=== PATIENT | male | born 1945 | race Caucasian/White ===

== ENCOUNTER → 2017-05-18 10:31 | Outpatient (CLI) | payer MEDICARE, BC, SELFPAY ==
--- NOTE | 2017-05-18 10:41 | XR_ITS ---
XR foot RT min 3V HISTORY: ITS.REASON: RT FOOT SWELLING, ORDERING PHYSICIAN: Abilio Pinto PATIENT AGE: 71 years COMPARISON: None FINDINGS: No fracture or dislocation. No lytic or blastic change. There is normal mineralization.. The joint spaces are well-preserved. No significant degenerative/arthritic changes. No erosive changes evident. There is extension of the toes and mild pes cavus. IMPRESSION: 1. No acute finding. 2. Nonspecific extension of the toes with pes cavus
== END ==
PROVIDERS: PCP Internal Medicine; Visit Provider Internal Medicine
DX: M79.89 Other specified soft tissue disorders (principal)
CPT/HCPCS: 73630

== ENCOUNTER → 2019-10-04 10:51 | Outpatient (CLI) | payer MEDICARE, OTHER, SELFPAY ==
--- NOTE | 2019-10-04 11:04 | XR_ITS ---
PROCEDURE: XR CHEST 2V CLINICAL HISTORY: COUGH, CHEST PAIN COMPARISON: No exams were available for comparison FINDINGS: The cardiomediastinal silhouette and pulmonary vascularity are within normal limits. The lungs are clear without infiltrates, suspicious nodules, or pleural effusions. No acute bony abnormalities. IMPRESSION: No acute findings. Dictated by: Kvng Fagan 10/04/2019 11:47 Electronically signed by Kvng Fagan in [place] 10/04/2019 11:47
--- NOTE | 2019-10-04 11:32 | ECG_ITS ---
APPROVED REPORT Exam: Resting ECG HR:61 bpm ECG Measurements Heart Rate 61 AXES [place] 146 P 51 QRSd 90 QRS 46 QT 424 T 63 QTc 426 <Conclusion> Normal sinus rhythm Nonspecific T wave abnormality Abnormal ECG Electronically signed by : Abilio Pinto, 10/04/2019 11:49:37
== END ==
PROVIDERS: PCP Internal Medicine; Visit Provider Internal Medicine
DX: R07.89 Other chest pain (principal); R05 Cough
CPT/HCPCS: 71046; 93005

== ENCOUNTER → 2019-10-16 09:32 | Outpatient (CLI) | payer MEDICARE, OTHER, SELFPAY ==
--- NOTE | 2019-10-16 09:31 | CT_ITS ---
PROCEDURE: CT CHEST W CON CLINCAL INDICATION: L CHEST DISCOMFORT Left anterior chest discomfort/pressure with COMPARISON: XR CHEST 2V from 10/04/2019 TECHNIQUE: IV Contrast: 75ml Optiray 350 Axial images obtained with sagittal and coronal reformats. All CT scans at the facility use one or more dose reduction, viz: automated exposure control, ma/kV adjustment per patient size (including targeted exams where dose is matched to indication, i.e. head), or iterative reconstruction technique. FINDINGS: HEART AND MEDIASTINAL STRUCTURES: The left lobe of the thyroid gland is enlarged with heterogeneous density with some stippled calcification along the upper pole suggestive of a large thyroid nodule. This area measures approximately 3.9 by 2.8 cm. This is causing compression upon the trachea with mild tracheal shift toward the right of approximately 1.3 cm and is causing some narrowing of the trachea. The nodule extends into the substernal region. No mediastinal or hilar adenopathy. There are few scattered small mediastinal and hilar lymph nodes. Coronary artery calcifications are present. There is some mild nonspecific thickening of the esophagus. LUNGS AND PLEURAL SPACES: There are some atelectatic/fibrotic changes in the right upper lobe. A 3 mm noncalcified nodules present in the right minor fissure. Atelectatic or fibrotic changes are present in the right lower lobe laterally. There is minimal nodularity in the subpleural region in the left lower lobe posteriorly at 5 mm BONY STRUCTURES: No acute bony abnormalities apparent. UPPER ABDOMEN: Unremarkable. ADDITIONAL FINDINGS: There are few scattered small axillary lymph nodes. IMPRESSION: 1. Enlarged left lobe of the thyroid gland/left thyroid mass containing some stippled calcifications with compression upon the trachea with substernal extension. Suggest thyroid ultrasound for further evaluation. 2. There is some scattered atelectatic or fibrotic changes in the lungs with nonspecific findings Dictated by: Linwood Hernandez MD 10/17/2019 10:56 Electronically signed by Linwood Hernandez MD in [place] 10/17/2019 10:56
== END ==
PROVIDERS: PCP Internal Medicine; Visit Provider Internal Medicine
DX: R07.89 Other chest pain (principal)
CPT/HCPCS: 71260; Q9967

== ENCOUNTER → 2019-10-18 09:12 | Outpatient (CLI) | payer MEDICARE, OTHER, SELFPAY ==
--- NOTE | 2019-10-18 09:25 | ECG_ITS ---
APPROVED REPORT Exam: Resting ECG HR:64 bpm ECG Measurements Heart Rate 64 AXES [place] 140 P 63 QRSd 90 QRS 80 QT 430 T 68 QTc 443 <Conclusion> Normal sinus rhythm with sinus arrhythmia NDST-T Changes Small Inferolateral Q Waves Noted Abnormal ECG Electronically signed by : Abilio Pinot, 10/18/2019 14:14:36
== END ==
PROVIDERS: PCP Internal Medicine; Visit Provider Internal Medicine
DX: R93.1 Abnormal findings on diagnostic imaging of heart and coronary circulation (principal)
CPT/HCPCS: 93005

== ENCOUNTER → 2019-10-26 06:12 | Outpatient (CLI) | payer MEDICARE, OTHER, SELFPAY ==
--- NOTE | 2019-10-26 | NM_ITS ---
APPROVED REPORT Exam: Nuclear Stress Test Indication: chest pain..short of breath Patient Location: Outpatient Stress Tech: Ramona Eric DC Tech:Yesenia FloodJASVIR RT(R)(N) Ht: 5 ft 10 in Wt: 210 lbs HR: 63 bpm BP: 162/80 mmHg BSA: 2.13 m2 BMI: 30.1 History: chest pain..short of breath Procedure: Patient exercised on Nick protocol 8:00 minutes and sec, resting heart rate 63 bpm, resting blood pressure 162/80 mmHg, with exercise maximum heart rate achived was 140 bpm which is 95 % of the maximum predicted heart rate and blood pressure was 220/90 mmHg. Patient denied any complaint of chest pain. Patient has Good exercise capacity, achieved 10.1 METs of workload on treadmill, the blood pressure response to exercise was Hypertensive. Electrocardiogram Resting electrocardiogram shows sinus rhythm, with exercise there is 1.[address] segment depression noted from the baseline EKG. The EKG portion of the exercise Myoview is positive for ischemia. Cardiac Stress and Resting SPECT Images: Cardiac Stress and Resting SPECT images were obtained using technetium 99m Myoview 30.5 mCi stress and 10.04 mCi at rest. Gated SPECT for the analysis of segmental wall motion and calculation of the ejection fraction also done. Cardiac stress and resting SPECT images show decrease tracer activity in the anteroseptal inferior wall which improves on the resting images suggestive of reversible ischemia, computer derived ejection fraction is 57% with mild inferior wall hypokinesis, right ventricle is normal size and contractility. Conclusion: 1. The EKG portion of the exercise Myoview is positive for ischemia, patient has good exercise capacity achieved 10.1 mets of workload on treadmill, the blood pressure response to exercise was hypertensive, test was stopped due to shortness of breath. 2. Scintigraphic evidence of mild reversible ischemia involving the anteroseptal and inferior wall, computer derived ejection fraction is 57% with segmental wall motion abnormality described above, right ventricle is normal size and contractility 3. Abnormal exercise Myoview study. Electronically signed by : Roverto Padilla, 10/26/2019 11:45:26
--- NOTE | 2019-10-26 08:00 | CA_ITS ---
APPROVED REPORT Exam: Exercise Treadmill Technologist: Ramona Eric, Ht: 5 ft 10 in Wt: 210 lbs BSA: 2.13 m2 Indications: CP Medical History Cardiac Risk Factors: FHX of CAD Stress Test Details Test: Nick HR Resting HR: 70 bpm Max Heart Rate (APMHR): 148 bpm Max HR Achieved: 140 bpm Target HR (85% APMHR): 125 bpm % of APMHR: 94 BP Resting BP: 162/80 mmHg Max BP: 220/90 mmHg ECG Clinical Exercise duration: 08:01 min Highest Stage Achieved: Exercise capacity: 10.1 METs Stress ECG Conclusion No CP Occ PAC 1.5-1.75mm horizontal ST depression inferiorly and 1-1.5mm laterally. ST depression persist into recovery along with lateral T wave inversion EKG changes positive for ischemia myoview images reported separately Test Summary REST . . . . . . . Standing REST . . . . . . . Sitting REST 06:09 0.0 0.0 70 . 162/ 80 . . Stage 1 01:00 10.0 1.7 88 . . . . Stage 1 02:00 10.0 1.7 104 . . . . Stage 1 03:00 10.0 1.7 106 . 184/ 90 . . Stage 2 01:00 12.0 2.5 118 . . . . Stage 2 02:00 12.0 2.5 126 . . . . Stage 2 03:00 12.0 2.5 128 . 220/ 90 . . Stage 3 . . . . . . . Cardiolite injected Stage 3 01:00 14.0 3.4 136 . . . . Stage 3 02:00 14.0 3.4 140 . . . . Stage 3 02:01 14.0 3.4 140 . . . Stop exercise at 08:01 RECOVERY 01:00 0.0 0.0 114 . . . . RECOVERY 02:00 0.0 0.0 99 . . . . RECOVERY 03:00 0.0 0.0 91 . . . . RECOVERY 04:00 0.0 0.0 81 . 162/ 89 . . RECOVERY 05:00 0.0 0.0 80 . 162/ 89 . . RECOVERY 06:00 0.0 0.0 80 . 162/ 78 . . RECOVERY 07:00 0.0 0.0 79 . 162/ 78 . . RECOVERY 08:00 0.0 0.0 82 . 144/ 97 . . RECOVERY 09:00 0.0 0.0 74 . 144/ 97 . . RECOVERY 10:00 0.0 0.0 75 . 143/ 86 . . RECOVERY 10:49 0.0 0.0 76 . 143/ 86 . . Electronically signed by : Roverto Padilla, 10/26/2019 11:00:35
== END ==
PROVIDERS: PCP Internal Medicine; Visit Provider Internal Medicine
DX: R07.89 Other chest pain (principal); E04.1 Nontoxic single thyroid nodule
CPT/HCPCS: 78452; 93017; A9502

== ENCOUNTER → 2019-11-02 13:53 | Outpatient (CLI) | payer MEDICARE, OTHER, SELFPAY ==
[2019-11-02 14:48] LABS: Calcium 10.1 mg/dl (8.4-10.2)
[2019-11-02 15:06] LABS: Free T4 (Free Thyroxine) 1.17 ng/dl (0.78-2.19)
[2019-11-02 15:19] LABS: Thyroid Stimulating Hormone 0.84 uIU/mL (0.465-4.68)
[2019-11-04 11:04] LABS: Thyroid Peroxidase Antibodies <9 IU/mL (0-34)
[2019-11-07 05:37] LABS: Calcitonin 5.3 pg/mL (0.0-8.4)
== END ==
PROVIDERS: Visit Provider Otolaryngology
DX: E07.9 Disorder of thyroid, unspecified (principal)
CPT/HCPCS: 36415; 82308; 82310; 84439; 84443; 84481; 86376

== ENCOUNTER 2019-11-07 08:26 | Day surgery (SDC) | payer MEDICARE, OTHER, SELFPAY ==
[2019-11-07] VITALS (14 sets, daily range): BP systolic 99–181; BP diastolic 56–103; PULSE 49–69; RESP 16–20; TEMP 36.7; O2SAT 93–99; BMI 30.8
--- NOTE | 2019-11-07 | IR_ITS ---
APPROVED REPORT Patient Location: Outpatient PROCEDURES Left heart catheterization Left ventriculogram Selective coronary angiogram Drug-eluting stent deployment to the mid LAD INDICATION Coronary artery disease, Angina pectoris class III, Anterior apical reversible ischemia on abnormal Myoview Informed consent was obtained prior to the procedure. COMPLICATIONS None Estimated Blood Loss: Less than 10 ml TECHNIQUE One percent lidocaine used to anesthetize the right anterior aspect of the wrist. The right radial artery was accessed via the Seldinger technique. A 6 [place] sheath was placed in the right radial artery. 2.5 mg of verapamil, 800 mcg of nitroglycerin, 1mg Lidocaine and 5000 U Heparin were given through the arterial sheath. The trap catheter was also used to perform left heart catheterization, left ventriculogram and selective coronary angiogram. At the end of the diagnostic procedure therapeutic heparin was administered and a JL 3 guide catheter was used to intubate the left main artery. A Choice PT extra-support wire was placed distally and a 2.75 x 15 mm resolute hiram stent was deployed at 16 calli reducing the severe stenosis to 0%. MIN-3 flow was present before and after the procedure. At the end of the procedure the apparatus was removed the sheath was removed good hemostasis was achieved using TR banding patient was transferred to the postop holding area in stable condition ANGIOGRAPHIC RESULTS The left main artery Normal The left anterior descending artery Is proximally normal and has a mid vessel 70 to 80% stenosis followed by additional 20% stenoses. The circumflex artery Is nondominant yet still a large vessel giving rise to a very large first obtuse marginal artery which has proximal and mid vessel 20% stenosis The right coronary artery Is a dominant vessel and has proximal concentric 30% stenosis accompanied by MIN II flow. There are mild 10 to 20% luminal irregularities distally The [place]MAN ventriculogram reveals Preserved 60% The left ventricular end-diastolic pressure 15 mmHg IMPRESSION Severe mid LAD disease which correlates well to the abnormal Myoview Successful stenting of the mid LAD severe disease reduced to 0% with one drug-eluting stent Preserved ejection fraction Normal to mildly elevated LVEDP Moderate endothelial dysfunction involving the right coronary PLAN 1. Dual antiplatelet therapy 2. LDL less than 55 3. Cardiac rehabilitation 4. Avoidance of tobacco products 5. Treatment of endothelial dysfunction Electronically signed by : Farooq Valiente, 11/07/2019 11:53:29
--- NOTE | 2019-11-07 08:34 | US_ITS ---
PROCEDURE: US THYROID CLINICAL INDICATION: THYROID MASS Thyroid mass noted on recent CT scan COMPARISON: CT CHEST W CON from 10/16/2019 FINDINGS: The isthmus has an unremarkable appearance. The right lobe measures 4.5 x 1.8 cm. There are at least 4 small hypodense nodules on the right which are 5 mm or less. The The left lobe is enlarged at 5.5 x 3 cm with a solid nodule along the lower pole at 3.5 cm. The nodule does appear well-circumscribed and is hypervascular with some peripheral calcification. The nodule slightly hypoechoic and T rads level 4. Biopsy suggested IMPRESSION: 3 cm solid nodule lower pole left lower thyroid gland T rads level 4, ultrasound-guided FNA suggested Dictated by: Linwood Hernandez MD 11/09/2019 07:53 Electronically signed by Linwood Hernandez MD in [facility] 11/09/2019 07:53
[2019-11-07 09:45] LABS: Chloride 104 mmol/L (98-107); Sodium 141 mmol/L (136-145)
[2019-11-07 09:46] LABS: Potassium 4.3 mmoL/L (3.5-5.1)
[2019-11-07 09:48] LABS: Blood Urea Nitrogen 15 mg/dl (9-20); Creatinine Clearance Estimated 90 mL/min (50-200); Estimated Glomerular Filt Rate 95 ml/min (>60); GFR (African American) 115 ML/MIN (>60)
[2019-11-07 09:49] LABS: Anion Gap 15.3 mEq/L (5-15); Calcium 9.6 mg/dl (8.4-10.2); Carbon Dioxide 26 mmol/L (22.0-30.0); Glucose 125 mg/dl (74-100)
[2019-11-07 09:54] LABS: Basophils # 0.1 K/mm3 (0-0.2); Basophils % 0.8 % (0.1-2.0); Eosinophils # 0.1 K/mm3 (0.0-0.4); Hematocrit 49.6 % (42.0-52.0); Hemoglobin 16.9 g/dL (14.1-18.0); Lymphocytes # 2.5 K/mm3 (0.7-4.5); Lymphocytes % 37.4 % (10-50); Mean Corpuscular HGB Conc 34.1 g/dL (31.8-35.4); Mean Corpuscular Hemoglobin 32.8 pg (27.0-31.2); Mean Corpuscular Volume 96.1 fl (80-94); Mean Platelet Volume 7.8 fl (7.4-10.4); Monocytes # 0.3 K/mm3 (0.1-1.0); Monocytes % 4.8 % (1.7-9.3); Neutrophils # 3.6 K/mm3 (1.8-7.8); Neutrophils % 55.1 % (37.0-80.0); Platelet Count 257 K/mm3 (142-424); Red Blood Count 5.16 M/mm3 (4.60-6.20); Red Cell Distribution Width 13.2 % (11.5-17.5); White Blood Count 6.6 K/mm3 (4.8-10.8)
[2019-11-07 14:08] LABS: CATHL Activated Clotting Time 254 SEC (74-125)
--- NOTE | 2019-11-07 15:06 | HMH.PHACLD ---
Herminio Zamudio has received discharge medication counseling on the following medications: PATIENT STARTED ON ASPIRIN 81 MG DAILY, BRILINTA 90 MG BID, AND ATORVASTATIN. MD NOT STARTING GURPREET/ARB AND BETA RAJENDRA DUE TO BLOOD PRESSURE AND RATE AT THIS TIME.
== END 2019-11-07 15:25 | disposition home or self-care (01) ==
LOC: CATHLAB 08:29
PROVIDERS: PCP Internal Medicine; Visit Provider Internal Medicine
DX: E07.9 Disorder of thyroid, unspecified (principal); R94.39 Abnormal result of other cardiovascular function study; I25.118 Atherosclerotic heart disease of native coronary artery with other forms of angina pectoris; I10 Essential (primary) hypertension; Z82.49 Family history of ischemic heart disease and other diseases of the circulatory system; Z79.899 Other long term (current) drug therapy
CPT/HCPCS: 76536; 80048; 85025; 85347; 92928; 93458; 99152; C1725; C1769; C1876; C9600; J1644; Q9967

== ENCOUNTER 2019-11-16 08:00 | Outpatient (RCR) | payer MEDICARE, OTHER, SELFPAY | END 2020-01-18 13:44 | disposition home or self-care (01) | LOC: PT 08:00 | PROVIDERS: Visit Provider Internal Medicine | DX: Z95.5 Presence of coronary angioplasty implant and graft (principal) | CPT/HCPCS: 76942; 88173; 88305; 93798 ==

== ENCOUNTER → 2019-11-21 07:39 | Outpatient (CLI) | payer MEDICARE, OTHER, SELFPAY ==
[2019-11-21 08:02] LABS: Basophils # 0.1 K/mm3 (0-0.2); Basophils % 0.8 % (0.1-2.0); Eosinophils # 0.1 K/mm3 (0.0-0.4); Hemoglobin 16.2 g/dL (14.1-18.0); Lymphocytes # 2.4 K/mm3 (0.7-4.5); Lymphocytes % 33.3 % (10-50); Mean Corpuscular HGB Conc 34.5 g/dL (31.8-35.4); Mean Corpuscular Hemoglobin 33.2 pg (27.0-31.2); Mean Corpuscular Volume 96.3 fl (80-94); Mean Platelet Volume 7.8 fl (7.4-10.4); Monocytes # 0.3 K/mm3 (0.1-1.0); Monocytes % 4.5 % (1.7-9.3); Neutrophils # 4.3 K/mm3 (1.8-7.8); Neutrophils % 59.4 % (37.0-80.0); Platelet Count 252 K/mm3 (142-424); Red Blood Count 4.88 M/mm3 (4.60-6.20); Red Cell Distribution Width 13.1 % (11.5-17.5); White Blood Count 7.2 K/mm3 (4.8-10.8)
[2019-11-21 08:30] LABS: Chloride 106 mmol/L (98-107); Sodium 141 mmol/L (136-145)
[2019-11-21 08:31] LABS: Potassium 4.3 mmoL/L (3.5-5.1)
[2019-11-21 08:33] LABS: Blood Urea Nitrogen 10 mg/dl (9-20); Estimated Glomerular Filt Rate 95 ml/min (>60); GFR (African American) 115 ML/MIN (>60)
[2019-11-21 08:34] LABS: Anion Gap 13.3 mEq/L (5-15); Calcium 9.9 mg/dl (8.4-10.2); Carbon Dioxide 26 mmol/L (22.0-30.0); Glucose 115 mg/dl (74-100)
== END ==
PROVIDERS: Visit Provider Internal Medicine
DX: R42 Dizziness and giddiness (principal); R06.02 Shortness of breath; I25.10 Atherosclerotic heart disease of native coronary artery without angina pectoris
CPT/HCPCS: 36415; 80048; 85025

== ENCOUNTER → 2019-12-25 09:41 | Outpatient (CLI) | payer MEDICARE, OTHER, SELFPAY ==
--- NOTE | 2019-12-25 09:46 | US_ITS ---
PROCEDURE: US BIOPSY THYROID CLINICAL INDICATION: LT THYROID NODULE COMPARISON: US US THYROID from 11/07/2019 TECHNIQUE: Pre biopsy exam confirming dominant solid left lobe nodule Following obtaining informed consent, using aseptic technique and local anesthesia with buffered lidocaine, fine-needle aspiration was performed of the nodule of interest using sonographic guidance. 3 passes were made into the nodule with a 25-gauge needle. Specimen was given to cytology. FINDINGS: CYTOLOGY: Negative for malignant cells, benign follicular nodule IMPRESSION: FNA left thyroid nodule negative for malignant cells. The patient tolerated the procedure well without evidence of immediate complications and left the ultrasound suite in stable condition. Dictated by: Linwood Hernandez MD 12/28/2019 16:14 Linwood Hernandez MD in [facility] 12/28/2019 16:14
== END ==
PROVIDERS: PCP Internal Medicine; Visit Provider Otolaryngology
DX: E04.1 Nontoxic single thyroid nodule (principal)
CPT/HCPCS: 10021; 76942; 88173; 88305

== ENCOUNTER → 2020-01-26 08:32 | Outpatient (CLI) | payer MEDICARE, OTHER, SELFPAY ==
[2020-01-26 09:09] LABS: Basophils % 0.4 % (0.1-2.0); Eosinophils # 0.1 K/mm3 (0.0-0.4); Hematocrit 51.2 % (42.0-52.0); Hemoglobin 16.6 g/dL (14.1-18.0); Lymphocytes # 2.4 K/mm3 (0.7-4.5); Mean Corpuscular HGB Conc 32.4 g/dL (31.8-35.4); Mean Corpuscular Hemoglobin 31.2 pg (27.0-31.2); Mean Corpuscular Volume 96.2 fl (80-94); Mean Platelet Volume 7.6 fl (7.4-10.4); Monocytes # 0.3 K/mm3 (0.1-1.0); Monocytes % 4.9 % (1.7-9.3); Neutrophils # 4.1 K/mm3 (1.8-7.8); Neutrophils % 58.6 % (37.0-80.0); Platelet Count 250 K/mm3 (142-424); Red Blood Count 5.33 M/mm3 (4.60-6.20); Red Cell Distribution Width 13.4 % (11.5-17.5); White Blood Count 6.9 K/mm3 (4.8-10.8)
--- NOTE | 2020-01-26 09:16 | ECG_ITS ---
APPROVED REPORT Exam: Resting ECG HR:50 bpm ECG Measurements Heart Rate 50 AXES TN 150 P 70 QRSd 94 QRS 90 QT 458 T 65 QTc 417 Conclusion Sinus bradycardia Rightward axis,NDST-T Changes Cannot rule out Inferior infarct,old Abnormal ECG Electronically signed by : Abilio Pinto, 02/12/2020 16:44:01
[2020-01-26 10:41] LABS: Chloride 104 mmol/L (98-107); Sodium 140 mmol/L (136-145)
[2020-01-26 10:42] LABS: Potassium 4.6 mmoL/L (3.5-5.1)
[2020-01-26 10:44] LABS: Alanine Aminotransferase 39 U/L (12-78); Albumin Level 4.2 g/dl (3.5-5.0); Albumin/Globulin Ratio 1.6 (1.1-1.8); Alkaline Phosphatase 74 U/L (38-126); Anion Gap 11.6 mEq/L (5-15); Aspartate Amino Transferase 36 U/L (17-59); Bilirubin,Total 0.8 mg/dl (0.2-1.3); Blood Urea Nitrogen 14 mg/dl (9-20); Calcium 9.9 mg/dl (8.4-10.2); Carbon Dioxide 29 mmol/L (22.0-30.0); Estimated Glomerular Filt Rate 95 ml/min (>60); GFR (African American) 115 ML/MIN (>60); Globulin 2.7 g/dL (1.3-3.2); Glucose 123 mg/dl (74-100); Total Protein,Serum 6.9 g/dl (6.3-8.2)
[2020-01-27 09:47] LABS: Covid-19 Nasal PCR Sendout UK NOT DETECTED
== END ==
PROVIDERS: Visit Provider Otolaryngology
DX: Z01.818 Encounter for other preprocedural examination (principal); D49.7 Neoplasm of unspecified behavior of endocrine glands and other parts of nervous system; E04.1 Nontoxic single thyroid nodule
CPT/HCPCS: 36415; 80053; 85025; 93005; U0003

== ENCOUNTER → 2020-02-20 07:51 | Outpatient (CLI) | payer MEDICARE, OTHER, SELFPAY ==
[2020-02-20 09:19] LABS: Calcium 9.9 mg/dl (8.4-10.2)
[2020-02-20 09:37] LABS: Free T4 (Free Thyroxine) 1.29 ng/dl (0.78-2.19)
== END ==
PROVIDERS: Visit Provider Otolaryngology
DX: D34 Benign neoplasm of thyroid gland (principal)
CPT/HCPCS: 36415; 82310; 84439

== ENCOUNTER → 2020-03-21 07:50 | Outpatient (CLI) | payer MEDICARE, OTHER, SELFPAY ==
[2020-03-21 10:39] LABS: Bilirubin,Unconjugated 0.7 mg/dL (0.0-1.1)
[2020-03-21 10:40] LABS: Alanine Aminotransferase 44 U/L (12-78); Albumin Level 4.4 g/dl (3.5-5.0); Alkaline Phosphatase 88 U/L (38-126); Aspartate Amino Transferase 39 U/L (17-59); Bilirubin,Direct 0.1 mg/dl (0.0-0.4); Bilirubin,Indirect 0.7 mg/dL (0.0-0.9); Bilirubin,Total 0.8 mg/dl (0.2-1.3); Chol/HDL Ratio 2.2 (1-3.5); Cholesterol 114 mg/dl (140-200); HDL Cholesterol 52 mg/dl (40-60); Total Protein,Serum 7.2 g/dl (6.3-8.2); Triglycerides 79 mg/dl (30-150); VLDL Cholesterol 16 mg/dL (0-40)
[2020-03-21 10:51] LABS: Direct LDL Cholesterol 51.66 mg/dL (100-129)
== END ==
PROVIDERS: Visit Provider Nurse Practitioner Family
DX: E78.5 Hyperlipidemia, unspecified (principal); I10 Essential (primary) hypertension; I25.10 Atherosclerotic heart disease of native coronary artery without angina pectoris; R06.00 Dyspnea, unspecified
CPT/HCPCS: 36415; 80061; 80076

== ENCOUNTER → 2020-03-22 12:52 | Outpatient (CLI) | payer MEDICARE, OTHER, SELFPAY ==
--- NOTE | 2020-03-22 12:52 | CA_ITS ---
APPROVED REPORT EXAM: Comprehensive 2D, Doppler, and color-flow Echocardiogram Home School Teacher: Elvia Galindo RT(R) Ht: 5 ft 9 in Wt: 203lbs BSA: 2.08 BP: 142/78 mmHg Indications: SOB, HTN, SOB, hyperlipidemia, CAD, stents, old NM 2D Dimensions LVOT 1.95 cm (M/F) 1.5-2.5 M-Mode Dimensions RVDd 2.75 cm (0.9-2.6) LA Diam 3.62 cm (1.9-4.0) LVDd 4.01 cm (3.5-5.7) Ao Diam 2.44 cm (2.0-3.7) LVDs 2.50 cm (3.5-5.7) IVSd 0.97 cm (0.6-1.1) PWd 0.97 cm (0.6-1.1) EF (Teich) 68.30% FS 37.70% EDV (Teich) 70.40 mL ESV (Teich) 22.30 mL LV Diastology E Decel Time 227.00 (160-240 msec) E/A Ratio 0.8 MED E' 9.90 (< 7 cm/sec) E'/MED E' Ratio 5.14 (>14) LAT E' 9.00 (<10 cm/sec) E/LAT E' Ratio 5.66 (>14) Mitral Valve MV E Max Todd. 51.00 (40-130 cm/s) MV A Velocity 64.00 (40-130 cm/s) E/A Ratio 0.80 MV Decel. Time 227.00 (160-240 ms) MV PHT 66.00 ms Left Ventricle Left atrium is mildly enlarged, left ventricle is normal size, mild concentric left ventricular hypertrophy, visually estimated ejection fraction 55% with no regional wall motion abnormality, grade 1 diastolic dysfunction seen without tissue Doppler evidence of raise left atrial pressure. Right Ventricle Right atrium and right ventricle are normal size and contractility. Aortic Valve Aortic valve is minimally thickened and fibrosed, there is no aortic stenosis or aortic insufficiency. Mitral Valve Mitral valve is grossly normal, there is mild mitral regurgitation. Tricuspid Valve Tricuspid valve is grossly normal, there is mild tricuspid regurgitation, tricuspid regurgitation jet velocity is inadequate for calculation of the right ventricular systolic pressure. Pulmonic Valve Pulmonic valve is poorly visualized. Great Vessels Aortic root is normal size. Pericardium No significant pericardial effusion noted. Conclusion 1. Mildly enlarged left atrium, normal left ventricular size, mild concentric left ventricular hypertrophy, visually estimated ejection fraction 55% with no regional wall motion abnormality, grade 1 diastolic dysfunction seen without tissue Doppler evidence of raise left atrial pressure. 2. Mild mitral and tricuspid regurgitation. 3. No significant pericardial effusion noted. Electronically signed by : Roverto Padilla, 03/22/2020 13:57:05
== END ==
PROVIDERS: PCP Internal Medicine; Visit Provider Nurse Practitioner Family
DX: E78.5 Hyperlipidemia, unspecified (principal); I10 Essential (primary) hypertension; I25.10 Atherosclerotic heart disease of native coronary artery without angina pectoris; R06.00 Dyspnea, unspecified
CPT/HCPCS: 93306

== ENCOUNTER → 2020-07-29 08:18 | Outpatient (CLI) | payer MEDICARE, OTHER, SELFPAY ==
--- NOTE | 2020-07-29 08:38 | US_ITS ---
PROCEDURE: US THYROID CLINICAL INDICATION: HYPOTHYROID,THYROID NEOPLASM COMPARISON: US US THYROID from 11/07/2019 US US BIOPSY THYROID from 12/25/2019 FINDINGS: Right lobe: The right lobe is 4.8 x 1.9 x 2 cm. There is a mixed nodule in the upper pole at 9 mm, 6 mm hypoechoic nodule mid polar region unchanged, 5 mm isoechoic nodule lower pole unchanged. Left lobe: Post left thyroidectomy Isthmus: Additional findings: IMPRESSION: Status post left thyroidectomy. No change right-sided thyroid nodules Dictated by: Linwood Hernandez MD 07/29/2020 18:56 Linwood Hernandez MD in [place] 07/29/2020 18:56
[2020-07-29 11:07] LABS: Free T4 (Free Thyroxine) 1.43 ng/dl (0.78-2.19)
[2020-07-29 11:21] LABS: Thyroid Stimulating Hormone 0.33 uIU/mL (0.465-4.68)
== END ==
PROVIDERS: Visit Provider Otolaryngology
DX: E03.0 Congenital hypothyroidism with diffuse goiter (principal)
CPT/HCPCS: 36415; 76536; 84439; 84443

== ENCOUNTER → 2020-11-27 08:44 | Outpatient (CLI) | payer MEDICARE, OTHER, SELFPAY ==
[2020-11-27 08:59] LABS: Basophils # 0.1 K/mm3 (0-0.2); Basophils % 0.6 % (0.1-2.0); Eosinophils # 0.2 K/mm3 (0.0-0.4); Hemoglobin 16.2 g/dL (14.1-18.0); Lymphocytes # 2.5 K/mm3 (0.7-4.5); Lymphocytes % 30.4 % (10-50); Mean Corpuscular HGB Conc 33.1 g/dL (31.8-35.4); Mean Corpuscular Hemoglobin 31.8 pg (27.0-31.2); Mean Corpuscular Volume 96.1 fl (80-94); Mean Platelet Volume 7.8 fl (7.4-10.4); Monocytes # 0.4 K/mm3 (0.1-1.0); Monocytes % 5.2 % (1.7-9.3); Neutrophils # 5.1 K/mm3 (1.8-7.8); Neutrophils % 61.9 % (37.0-80.0); Platelet Count 263 K/mm3 (142-424); Red Blood Count 5.09 M/mm3 (4.60-6.20); Red Cell Distribution Width 13.3 % (11.5-17.5); White Blood Count 8.3 K/mm3 (4.8-10.8)
[2020-11-27 09:37] LABS: Chloride 102 mmol/L (98-107); Potassium 5.1 mmoL/L (3.5-5.1); Sodium 143 mmol/L (136-145)
[2020-11-27 09:40] LABS: Alanine Aminotransferase 52 U/L (12-78); Albumin Level 4.5 g/dl (3.5-5.0); Albumin/Globulin Ratio 1.6 (1.1-1.8); Alkaline Phosphatase 77 U/L (38-126); Anion Gap 15.1 mEq/L (5-15); Aspartate Amino Transferase 40 U/L (17-59); Bilirubin,Total 1.1 mg/dl (0.2-1.3); Blood Urea Nitrogen 15 mg/dl (9-20); Calcium 9.9 mg/dl (8.4-10.2); Carbon Dioxide 31 mmol/L (22.0-30.0); Chol/HDL Ratio 2.6 (1-3.5); Cholesterol 113 mg/dl (140-200); Estimated Glomerular Filt Rate 83 ml/min (>60); GFR (African American) 100 ML/MIN (>60); Globulin 2.8 g/dL (1.3-3.2); Glucose 125 mg/dl (74-100); HDL Cholesterol 44 mg/dl (40-60); Total Protein,Serum 7.3 g/dl (6.3-8.2); Triglycerides 95 mg/dl (30-150); VLDL Cholesterol 19 mg/dL (0-40)
[2020-11-27 09:51] LABS: Direct LDL Cholesterol 48.57 mg/dL (100-129)
== END ==
PROVIDERS: Visit Provider Internal Medicine
DX: I25.10 Atherosclerotic heart disease of native coronary artery without angina pectoris (principal); E78.5 Hyperlipidemia, unspecified; N40.1 Benign prostatic hyperplasia with lower urinary tract symptoms
CPT/HCPCS: 36415; 80053; 80061; 84153; 85025

== ENCOUNTER → 2020-12-03 12:38 | Outpatient (CLI) | payer MEDICARE, OTHER, SELFPAY ==
--- NOTE | 2020-12-03 12:45 | CT_ITS ---
PROCEDURE: CT CHEST WO CON CLINICAL INDICATION: LUNG NODULES Follow-up lung nodule COMPARISON: CT CT CHEST W CON from 10/16/2019 TECHNIQUE: Axial images obtained with sagittal and coronal reformats. All CT scans at the facility use one or more dose reduction, viz: automated exposure control, ma/kV adjustment per patient size (including targeted exams where dose is matched to indication, i.e. head), or iterative reconstruction technique. FINDINGS: HEART AND MEDIASTINAL STRUCTURES: Status post left thyroidectomy. Scattered small lymph nodes are present in the mediastinum as before not significantly changed. Coronary artery calcifications and/or stent noted LUNGS AND PLEURAL SPACES: COPD changes with fibrotic changes in the right upper lobe and a calcified nodule in the right upper lobe and so shaded with a fibrotic change. This is stable. No change 3 mm nodule in the right minor fissure. Scattered areas of scarring in the lung bases. Stable 5 mm nodule in the right lower lobe . Previously noted subpleural opacity in the left lower lobe is not apparent. No new nodules are evident. BONY STRUCTURES: Degenerative changes thoracic spine UPPER ABDOMEN: Unremarkable. ADDITIONAL FINDINGS: No other significant abnormalities. IMPRESSION: Status post left thyroidectomy. Otherwise stable CT appearance of the chest. No new nodules and no increase in size of existing nodules Dictated by: Linwood Hernandez MD 12/04/2020 07:55 iLnwood Hernandez MD in [place] 12/04/2020 07:55
== END ==
PROVIDERS: PCP Internal Medicine; Visit Provider Internal Medicine
DX: R91.1 Solitary pulmonary nodule (principal)
CPT/HCPCS: 71250

== ENCOUNTER → 2021-06-06 11:50 | Outpatient (CLI) | payer MEDICARE, OTHER, SELFPAY ==
[2021-06-06 13:23] LABS: Chloride 103 mmol/L (98-107)
[2021-06-06 13:24] LABS: Potassium 4.7 mmoL/L (3.5-5.1); Sodium 138 mmol/L (136-145)
[2021-06-06 13:26] LABS: Alanine Aminotransferase 53 U/L (12-78); Anion Gap 12.7 mEq/L (5-15); Aspartate Amino Transferase 45 U/L (17-59); Carbon Dioxide 27 mmol/L (22.0-30.0)
[2021-06-06 13:27] LABS: Albumin Level 4.3 g/dl (3.5-5.0); Albumin/Globulin Ratio 1.6 (1.1-1.8); Alkaline Phosphatase 82 U/L (38-126); Bilirubin,Total 0.9 mg/dl (0.2-1.3); Calcium 8.7 mg/dl (8.4-10.2); Chol/HDL Ratio 2.2 (1-3.5); Cholesterol 101 mg/dl (140-200); Globulin 2.7 g/dL (1.3-3.2); Glucose 103 mg/dl (74-100); HDL Cholesterol 45 mg/dl (40-60); Triglycerides 73 mg/dl (30-150); VLDL Cholesterol 15 mg/dL (0-40)
[2021-06-06 13:38] LABS: Direct LDL Cholesterol 47.45 mg/dL (100-129)
[2021-06-06 13:47] LABS: Blood Urea Nitrogen 13 mg/dl (9-20); Estimated Glomerular Filt Rate 111 ml/min (>60); GFR (African American) 134 ML/MIN (>60)
[2021-06-06 14:19] LABS: Prostate Specific Ag Screen 6.9 ng/ml (0.0-4.0)
== END ==
PROVIDERS: Visit Provider Internal Medicine
DX: I25.10 Atherosclerotic heart disease of native coronary artery without angina pectoris (principal); E78.5 Hyperlipidemia, unspecified; R97.20 Elevated prostate specific antigen [PSA]; Z12.5 Encounter for screening for malignant neoplasm of prostate
CPT/HCPCS: 80053; 80061; G0103

== ENCOUNTER → 2021-07-28 08:24 | Outpatient (CLI) | payer MEDICARE, OTHER, SELFPAY ==
[2021-07-29 08:37] LABS: PSA, Free 1.46 ng/mL; Prostate Specific Ag 3.7 ng/mL (0.0-4.0)
== END ==
PROVIDERS: Visit Provider Urology
DX: R97.20 Elevated prostate specific antigen [PSA] (principal)
CPT/HCPCS: 36415; 84153; 84154

== ENCOUNTER → 2021-12-17 07:45 | Outpatient (CLI) | payer MEDICARE, OTHER, SELFPAY ==
--- NOTE | 2021-12-17 07:52 | CT_ITS ---
FINAL REPORT TECHNIQUE: Axial images were obtained from the lung apex to the mid abdomen by computed tomography. Coronal reformatted images were obtained. This study was performed with techniques to keep radiation doses as low as reasonably achievable, (ALARA). Individualized dose reduction techniques using automated exposure control or adjustment of mA and/or kV according to the patient''s size were employed. CLINICAL HISTORY: F/U LUNG NODULES COMPARISON: December 03, 2020 FINDINGS: There are small mediastinal lymph nodes. There is no axillary adenopathy. There is no hilar or mediastinal adenopathy. Heart size is normal. There are coronary artery calcifications with a possible stent. There is no pericardial or pleural effusion. Limited images of the upper abdomen are unremarkable. On the lung window images there is mild scarring. There is a calcified granuloma in the left lower lobe. There is a stable 3 mm nodule in the right minor fissure and a stable 5 mm nodule in the right lower lobe. No new mass or nodule is identified. IMPRESSION: Stable right lung nodules. No new mass or nodule is identified. Reviewed, Interpreted and Dictated by Nuno Schmitt III, MD Transcribed by Sofia Bates Authenticated and [facility]
== END ==
PROVIDERS: PCP Internal Medicine; Visit Provider Internal Medicine
DX: R91.8 Other nonspecific abnormal finding of lung field (principal)
CPT/HCPCS: 71250

== ENCOUNTER → 2022-03-09 08:46 | Outpatient (CLI) | payer MEDICARE, OTHER, SELFPAY ==
[2022-03-09 10:42] LABS: Free T4 (Free Thyroxine) 1.28 ng/dl (0.78-2.19)
[2022-03-09 10:57] LABS: Thyroid Stimulating Hormone 0.64 uIU/mL (0.465-4.68)
[2022-03-10 09:13] LABS: Triiodothyronine (T3) Free 3.3 pg/mL (2.0-4.4)
== END ==
PROVIDERS: PCP Internal Medicine; Visit Provider Radiology Diagnostic Radiology
DX: E03.9 Hypothyroidism, unspecified (principal)
CPT/HCPCS: 36415; 84439; 84443; 84481

== ENCOUNTER → 2022-12-15 06:54 | Outpatient (CLI) | payer MEDICARE, OTHER, SELFPAY ==
[2022-12-15 07:28] LABS: Basophils % 0.6 % (0.1-2.0); Eosinophils # 0.2 K/mm3 (0.0-0.4); Eosinophils % 2.1 % (0.1-12.0); Hematocrit 44.3 % (42.0-52.0); Hemoglobin 16.6 g/dL (14.1-18.0); Lymphocytes # 2.4 K/mm3 (0.7-4.5); Lymphocytes % 34.7 % (10-50); Mean Corpuscular HGB Conc 37.5 g/dL (31.8-35.4); Mean Corpuscular Hemoglobin 36.4 pg (27.0-31.2); Mean Platelet Volume 8.7 fl (7.4-10.4); Monocytes # 0.4 K/mm3 (0.1-1.0); Monocytes % 5.8 % (1.7-9.3); Neutrophils % 56.8 % (37.0-80.0); Platelet Count 269 K/mm3 (142-424); Red Blood Count 4.56 M/mm3 (4.60-6.20); Red Cell Distribution Width 12.9 % (11.5-17.5)
[2022-12-15 08:34] LABS: Chloride 106 mmol/L (98-107)
[2022-12-15 08:35] LABS: Potassium 4.8 mmoL/L (3.5-5.1)
[2022-12-15 08:37] LABS: Alanine Aminotransferase 33 U/L (12-78); Aspartate Amino Transferase 37 U/L (17-59); Blood Urea Nitrogen 13 mg/dl (9-20); Estimated Glomerular Filt Rate 82 ml/min (>60); GFR (African American) 100 ML/MIN (>60)
[2022-12-15 08:38] LABS: Albumin Level 3.9 g/dl (3.5-5.0); Albumin/Globulin Ratio 1.4 (1.1-1.8); Alkaline Phosphatase 76 U/L (38-126); Carbon Dioxide 26 mmol/L (22.0-30.0); Cholesterol 121 mg/dl (140-200); Globulin 2.8 g/dL (1.3-3.2); Glucose 121 mg/dl (74-100); HDL Cholesterol 40 mg/dl (40-60); Total Protein,Serum 6.7 g/dl (6.3-8.2); Triglycerides 92 mg/dl (30-150); VLDL Cholesterol 18 mg/dL (0-40)
[2022-12-15 08:54] LABS: Free T4 (Free Thyroxine) 1.43 ng/dl (0.78-2.19)
[2022-12-15 09:08] LABS: Thyroid Stimulating Hormone 0.56 uIU/mL (0.465-4.68)
[2022-12-15 09:47] LABS: Prostate Specific Ag Screen 4.9 ng/ml (0.0-4.0)
[2022-12-15 09:48] LABS: Anion Gap 12.8 mEq/L (5-15); Sodium 140 mmol/L (136-145)
== END ==
PROVIDERS: PCP Internal Medicine; Visit Provider Internal Medicine
DX: I25.10 Atherosclerotic heart disease of native coronary artery without angina pectoris (principal); Z12.5 Encounter for screening for malignant neoplasm of prostate; E78.5 Hyperlipidemia, unspecified; Z95.5 Presence of coronary angioplasty implant and graft; Z85.850 Personal history of malignant neoplasm of thyroid
CPT/HCPCS: 36415; 80053; 80061; 84439; 84443; 85025; G0103

== ENCOUNTER → 2023-02-09 06:38 | Outpatient (CLI) | payer MEDICARE, OTHER, SELFPAY ==
--- NOTE | 2023-02-09 06:41 | NM_ITS ---
APPROVED REPORT Exam: Nuclear Stress Test Indication: chest pain.palpitations..family hx..high cholesterol Patient Location: Outpatient Stress Tech: Temitope ROA Tech:JASVIR Fontana RT(R)(N) Ht: 5 ft 9 in Wt: 208 lbs HR: 67 bpm BP: 168/79 mmHg BSA: 2.10 m2 TID: 0.82 BMI: 30.7 History: chest pain.palpitations..family hx..high cholesterol Procedure: Patient exercised on Nick protocol 8:15 minutes and sec, resting heart rate 67 bpm, resting blood pressure 168/79 mmHg, with exercise maximum heart rate achived was 138 bpm which is 95 % of the maximum predicted heart rate and blood pressure was 222/92 mmHg. Test was stopped due to fatigue. Patient denied any complaint of chest pain. Patient has Average exercise capacity, achieved 10.1 METs of workload on treadmill, the blood pressure response to exercise was Exaggerated. Cardiac Stress and Resting SPECT Images: Cardiac Stress and Resting SPECT images were obtained using technetium 99m Myoview 31.0 mCi stress and 10.48 mCi at rest. Resting and stress imaging in supine and prone positions demonstrate a medium sized, mild, fixed perfusion defect in the inferior LV wall. This is no longer visualized with prone stress imaging. Findings are suggestive of diaphragmatic attenuation. Gated imaging demonstrates normal global and regional LV systolic function. LVEF is calculated at 59%. Conclusion: Diaphragmatic attenuation is present. No definite evidence of fixed or reversible perfusion defects. Gated imaging demonstrates normal global and regional LV systolic function. LVEF is calculated at 59%. Of note, the patient had a hypertensive BP response at peak stress. BP control is recommended. Electronically signed by : Lesly Johansen MD 02/11/2023 12:15:59
--- NOTE | 2023-02-09 08:55 | CA_ITS ---
APPROVED REPORT EXAM: Comprehensive 2D, Doppler, and color-flow Echocardiogram Collection Specialist: Elvia Galindo RT(R) Ht: 5 ft 9 in Wt: 214lbs BSA: 2.13 BP: 158/80 mmHg Indications: CAD, CP, Abn EKG, HTN, hyperlipidemia 2D Dimensions LVOT 1.96 cm (M/F) 1.5-2.5 LVEF (Stienberg's) 57.30 % M: 52 - 72 LV Volume 88.20 mL M: 62 - 150 LV Volume Index 41.41 mL/m2 M: 34 - 74 LA Volume 34.40 mL LA Volume Index 16.15 mL/m2 (M/F) 16-34 M-Mode Dimensions RVDd 2.07 cm (0.9-2.6) LA Diam 3.77 cm (1.9-4.0) LVDd 4.59 cm (3.5-5.7) Ao Diam 2.59 cm (2.0-3.7) LVDs 3.54 cm (3.5-5.7) IVSd 0.75 cm (0.6-1.1) PWd 0.64 cm (0.6-1.1) EF (Teich) 46.00% FS 22.90% EDV (Teich) 96.80 mL ESV (Teich) 52.30 mL LV Diastology E Decel Time 180.00 (160-240 msec) E/A Ratio 0.8 MED E' 5.70 (< 7 cm/sec) E'/MED E' Ratio 9.61 (>14) LAT E' 6.70 (<10 cm/sec) E/LAT E' Ratio 8.18 (>14) Mitral Valve MV E Max Todd. 55.00 (40-130 cm/s) MV A Velocity 69.00 (40-130 cm/s) E/A Ratio 0.80 MV Decel. Time 180.00 (160-240 ms) MV PHT 53.00 ms Left Ventricle The left ventricle is normal size. The left ventricular systolic function is normal. The left ventricular ejection fraction is within the normal range. There is increased LV wall thickness. Mild concentric left ventricular hypertrophy is present. There is normal LV segmental wall motion. Diastolic function is indeterminate. LVEF is 60%. Right Ventricle The right ventricle is normal size. The right ventricular systolic function is normal. Atria Left atrium is mildly dilated. The right atrium size is normal. Aortic Valve The aortic valve is mildly thickened. There is no aortic valvular stenosis. Trace aortic regurgitation. Mitral Valve The mitral valve leaflets are mildly thickened. No evidence of mitral valve stenosis. Trace mitral regurgitation. Tricuspid Valve The tricuspid valve leaflets are thin and pliable. Trace tricuspid regurgitation. There is insufficient TR jet to estimate RVSP. Pulmonic Valve The pulmonary valve is normal in structure. Trace pulmonic regurgitation. Great Vessels The aortic root is normal in size. The ascending aorta is normal in size. IVC is normal in size and collapses >50% with inspiration. Pericardium There is no pericardial effusion. Other Information Study Quality: Fair Conclusion Normal biventricular systolic function. LVH is present. No significant valvular stenosis or regurgitation. Electronically signed by : Lesly Johansen MD 02/09/2023 21:28:57
--- NOTE | 2023-02-09 10:07 | CA_ITS ---
APPROVED REPORT Exam: Exercise Treadmill Technologist: Temitope Baez Ht: 5 ft 9 in Wt: 209 lbs BSA: 2.10 m2 HR: 58 bpm BP: 168/79 mmHg Rhythm: NSR Indications: HYPothyroidism/left Thyroidectomy Medical History Medications: Levothyroxine,,,,, Aspirin,,,,, Atorvastatin,,,,, Stress Test Details Test: Nick HR Resting HR: 67 bpm Max Heart Rate (APMHR): 145 bpm Max HR Achieved: 138 bpm Target HR (85% APMHR): 123 bpm % of APMHR: 95 Recovery HR: 72 bpm HR response to stress: Normal HR response to stress BP Resting BP: 168.0/79.0 mmHg Max BP: 222.0/92.0 mmHg Recovery BP: 137.0/78.0 mmHg BP response to stress: Abnormal hypertensive response to stress. ECG Resting ECG: Normal sinus rhythm, T wave changes in inferior and lateral leads Stress EC m horizontal ST depressionm Arrhythmia: Occasional PVCs Recovery ECG: Return to baseline within 3 minutes of recovery PVCs Clinical Exercise duration: 08:15 min Highest Stage Achieved: Exercise capacity: 10.1 METs Stress ECG Conclusion The patient was able to exercise for a total of 8 minutes, 15 seconds. He achieved a total of 10.1 METS. He has average exercise capacity compared to age and sex matched peers. He has normal HR, but exaggerated BP, response to exercise. Symptoms: Fatigue, Dyspnea Arrhythmias/Ectopy: PVC ST-T Changes: [address] depression Conclusion: Average exercise capacity. Abnormal EKG response to exercise. Myoview images reported separately. Test Summary REST 03:09 0.0 0.0 67 . 168/ 79 . . Stage 1 01:00 10.0 1.7 92 . . . . Stage 1 02:00 10.0 1.7 97 . . . . Stage 1 03:00 10.0 1.7 95 . . . . Stage 2 01:00 12.0 2.5 107 . 160/ 82 . . Stage 2 02:00 12.0 2.5 117 . 160/ 82 . . Stage 2 03:00 12.0 2.5 120 . 180/ 88 . . Stage 3 01:00 14.0 3.4 132 . . . . Stage 3 . . . . . . . Myoview Injected Stage 3 02:00 14.0 3.4 136 . 186/ 90 . . Stage 3 02:15 14.0 3.4 138 . 186/ 90 . Stop exercise at 08:15 RECOVERY 01:00 0.0 0.0 117 . . . . RECOVERY 02:00 0.0 0.0 92 . 222/ 92 . . RECOVERY 03:00 0.0 0.0 82 . 222/ 92 . . RECOVERY 04:00 0.0 0.0 77 . 149/ 78 . . RECOVERY 05:00 0.0 0.0 76 . 149/ 78 . . RECOVERY 06:00 0.0 0.0 73 . 165/ 76 . . RECOVERY 07:00 0.0 0.0 72 . 165/ 76 . . RECOVERY 07:27 0.0 0.0 74 . 137/ 78 . . Electronically signed by : Lesly Johansen MD 02/11/2023 12:12:34
--- NOTE | 2023-02-09 11:02 | US_ITS ---
FINAL REPORT CLINICAL HISTORY: HYPOTHYROIDISM,S/P THROIDECTOMY FOLLICULAR CELL CARCINOMA COMPARISON: 07/29/2020 FINDINGS: THYROID ULTRASOUND: The left lobe of the thyroid gland has been surgically removed. The right lobe of the thyroid gland measures 4.6 x 2.2 x 1.7 cm in size. The remaining portions of the isthmus of the thyroid gland measure 3 mm in thickness. There are several nodules present in the right lobe of the thyroid. The largest mass measures 7 x 5 x 5 mm in size, is solid, isoechoic, a TI-RADS 3 category nodule. There is also a 6 x 5 x 4 mm solid hypoechoic TI-RADS category 4 nodule. These are both similar to the prior exam of 2020. Several smaller nodules are identified, none significantly larger than noted previously. IMPRESSION: Left thyroidectomy since prior ultrasound of 2020. Several nodules present in the right thyroid gland, none significantly changed since the prior ultrasound of 2020. Reviewed, Interpreted and Dictated by Nuno Schmitt III, MD Transcribed by Yaneli Shields Authenticated and [facility]
== END ==
PROVIDERS: PCP Internal Medicine; Visit Provider Nurse Practitioner Family
DX: E78.5 Hyperlipidemia, unspecified (principal); I10 Essential (primary) hypertension; I25.118 Atherosclerotic heart disease of native coronary artery with other forms of angina pectoris; Z87.891 Personal history of nicotine dependence
CPT/HCPCS: 76536; 78452; 93017; 93306; A9502

== ENCOUNTER → 2023-03-22 11:54 | Outpatient (CLI) | payer MEDICARE, OTHER, SELFPAY ==
[2023-03-22 12:26] LABS: Basophils % 0.5 % (0.1-2.0); Eosinophils # 0.1 K/mm3 (0.0-0.4); Eosinophils % 1.4 % (0.1-12.0); Hematocrit 47.2 % (42.0-52.0); Hemoglobin 16.3 g/dL (14.1-18.0); Lymphocytes # 2.6 K/mm3 (0.7-4.5); Lymphocytes % 33.8 % (10-50); Mean Corpuscular HGB Conc 34.6 g/dL (31.8-35.4); Mean Corpuscular Hemoglobin 33.5 pg (27.0-31.2); Mean Corpuscular Volume 96.8 fl (80-94); Mean Platelet Volume 8.5 fl (7.4-10.4); Monocytes # 0.5 K/mm3 (0.1-1.0); Monocytes % 6.3 % (1.7-9.3); Neutrophils # 4.5 K/mm3 (1.8-7.8); Platelet Count 222 K/mm3 (142-424); Red Blood Count 4.88 M/mm3 (4.60-6.20); Red Cell Distribution Width 13.1 % (11.5-17.5); White Blood Count 7.8 K/mm3 (4.8-10.8)
[2023-03-22 12:57] LABS: Chloride 103 mmol/L (98-107)
[2023-03-22 12:58] LABS: Potassium 4.4 mmoL/L (3.5-5.1); Sodium 141 mmol/L (136-145)
[2023-03-22 13:00] LABS: Alanine Aminotransferase 44 U/L (12-78); Anion Gap 12.4 mEq/L (5-15); Aspartate Amino Transferase 43 U/L (17-59); Blood Urea Nitrogen 13 mg/dl (9-20); Carbon Dioxide 30 mmol/L (22.0-30.0); Cholesterol 105 mg/dl (140-200); Estimated Glomerular Filt Rate 73 ml/min (>60); GFR (African American) 88 ML/MIN (>60); Triglycerides 95 mg/dl (30-150); VLDL Cholesterol 19 mg/dL (0-40)
[2023-03-22 13:01] LABS: Albumin Level 4.4 g/dl (3.5-5.0); Alkaline Phosphatase 65 U/L (38-126); Bilirubin,Indirect 1.1 mg/dL (0.0-0.9); Bilirubin,Total 1.1 mg/dl (0.2-1.3); Calcium 9.3 mg/dl (8.4-10.2); Chol/HDL Ratio 2.8 (1-3.5); Glucose 109 mg/dl (74-100); HDL Cholesterol 38 mg/dl (40-60); Magnesium 2.2 mg/dl (1.6-2.3)
[2023-03-22 13:12] LABS: Direct LDL Cholesterol 55.68 mg/dL (100-129)
[2023-03-22 13:17] LABS: Free T4 (Free Thyroxine) 1.31 ng/dl (0.78-2.19)
== END ==
PROVIDERS: PCP Internal Medicine; Visit Provider Nurse Practitioner
DX: E78.5 Hyperlipidemia, unspecified (principal); I11.9 Hypertensive heart disease without heart failure; I25.118 Atherosclerotic heart disease of native coronary artery with other forms of angina pectoris; R00.2 Palpitations; R94.31 Abnormal electrocardiogram [ECG] [EKG]; Z87.891 Personal history of nicotine dependence
CPT/HCPCS: 36415; 80048; 80061; 80076; 83735; 84439; 84443; 85025

== ENCOUNTER 2023-06-15 09:56 | Outpatient (CLI) | payer MEDICARE, OTHER, SELFPAY ==
[2023-06-15 11:02] LABS: Alanine Aminotransferase 38 U/L (12-78); Albumin Level 4.5 g/dl (3.5-5.0); Albumin/Globulin Ratio 1.9 (1.1-1.8); Alkaline Phosphatase 73 U/L (38-126); Anion Gap 9.6 mEq/L (5-15); Aspartate Amino Transferase 37 U/L (17-59); Bilirubin,Total 1.3 mg/dl (0.2-1.3); Blood Urea Nitrogen 15 mg/dl (9-20); Carbon Dioxide 29 mmol/L (22.0-30.0); Chloride 105 mmol/L (98-107); Chol/HDL Ratio 3.2 (1-3.5); Cholesterol 121 mg/dl (140-200); Estimated Glomerular Filt Rate 82 ml/min (>60); GFR (African American) 99 ML/MIN (>60); Globulin 2.4 g/dL (1.3-3.2); Glucose 124 mg/dl (74-100); HDL Cholesterol 38 mg/dl (40-60); Potassium 4.6 mmoL/L (3.5-5.1); Sodium 139 mmol/L (136-145); Total Protein,Serum 6.9 g/dl (6.3-8.2); Triglycerides 83 mg/dl (30-150); VLDL Cholesterol 17 mg/dL (0-40)
[2023-06-15 11:33] LABS: Thyroid Stimulating Hormone 0.75 uIU/mL (0.465-4.68)
== END 2023-06-15 23:59 ==
LOC: LAB 09:57
PROVIDERS: PCP Internal Medicine; Visit Provider Internal Medicine
DX: I25.10 Atherosclerotic heart disease of native coronary artery without angina pectoris; E78.5 Hyperlipidemia, unspecified; R73.01 Impaired fasting glucose; Z79.899 Other long term (current) drug therapy
CPT/HCPCS: 36415; 80053; 80061; 84443

== ENCOUNTER 2023-10-01 07:57 | Outpatient (CLI) | payer MEDICARE, OTHER, SELFPAY ==
[2023-10-01 08:56] LABS: Chloride 107 mmol/L (98-107); Potassium 4.6 mmoL/L (3.5-5.1); Sodium 140 mmol/L (136-145)
[2023-10-01 08:59] LABS: Anion Gap 12.6 mEq/L (5-15); Blood Urea Nitrogen 17 mg/dl (9-20); Carbon Dioxide 25 mmol/L (22.0-30.0); Estimated Glomerular Filt Rate 94 ml/min (>60); GFR (African American) 114 ML/MIN (>60); Glucose 122 mg/dl (74-100)
== END 2023-10-01 23:59 | disposition home or self-care (01) ==
LOC: LAB 07:58
PROVIDERS: PCP Internal Medicine; Visit Provider Physician Assistant
DX: R00.1 Bradycardia, unspecified (principal); I25.10 Atherosclerotic heart disease of native coronary artery without angina pectoris; R06.83 Snoring; I11.9 Hypertensive heart disease without heart failure; Z87.891 Personal history of nicotine dependence
CPT/HCPCS: 36415; 80048

== ENCOUNTER → 2023-10-25 15:53 | Outpatient (CLI) | payer MEDICARE, OTHER, SELFPAY | LOC: SL 15:54 | PROVIDERS: PCP Internal Medicine; Visit Provider Physician Assistant | DX: G47.33 Obstructive sleep apnea (adult) (pediatric) (principal); G47.36 Sleep related hypoventilation in conditions classified elsewhere | CPT/HCPCS: G0399 ==

== ENCOUNTER 2023-10-29 08:44 | Outpatient (CLI) | payer MEDICARE, OTHER, SELFPAY | END 2023-10-29 23:59 | disposition home or self-care (01) | LOC: RT 08:46 | PROVIDERS: PCP Internal Medicine; Visit Provider Specialist | DX: R00.2 Palpitations (principal) | CPT/HCPCS: 93225; 93227 ==

== ENCOUNTER → 2024-01-24 06:26 | Outpatient (CLI) | payer MEDICARE, OTHER, SELFPAY | LOC: SL 06:28 | PROVIDERS: Visit Provider Specialist | DX: G47.33 Obstructive sleep apnea (adult) (pediatric) (principal); R53.83 Other fatigue | CPT/HCPCS: G0399 ==

== ENCOUNTER 2024-02-08 07:50 | Outpatient (CLI) | payer MEDICARE, OTHER, SELFPAY ==
[2024-02-08 09:41] LABS: Basophils % 0.7 % (0.1-2.0); Eosinophils # 0.1 K/mm3 (0.0-0.4); Eosinophils % 2.2 % (0.1-12.0); Hematocrit 48.6 % (42.0-52.0); Hemoglobin 15.6 g/dL (14.1-18.0); Lymphocytes % 33.4 % (10-50); Mean Corpuscular Hemoglobin 32.3 pg (27.0-31.2); Mean Corpuscular Volume 100.7 fl (80-94); Mean Platelet Volume 7.4 fl (7.4-10.4); Monocytes # 0.3 K/mm3 (0.1-1.0); Monocytes % 5.2 % (1.7-9.3); Neutrophils # 3.4 K/mm3 (1.8-7.8); Neutrophils % 58.5 % (37.0-80.0); Platelet Count 258 K/mm3 (142-424); Red Blood Count 4.82 M/mm3 (4.60-6.20); Red Cell Distribution Width 12.9 % (11.5-17.5); White Blood Count 5.9 K/mm3 (4.8-10.8)
[2024-02-08 09:50] LABS: Alanine Aminotransferase 32 U/L (12-78); Albumin Level 4.1 g/dl (3.5-5.0); Albumin/Globulin Ratio 1.7 (1.1-1.8); Alkaline Phosphatase 64 U/L (38-126); Anion Gap 15.3 mEq/L (5-15); Aspartate Amino Transferase 37 U/L (17-59); Bilirubin,Total 0.8 mg/dl (0.2-1.3); Blood Urea Nitrogen 18 mg/dl (9-20); Calcium 9.3 mg/dl (8.4-10.2); Carbon Dioxide 25 mmol/L (22.0-30.0); Chloride 104 mmol/L (98-107); Chol/HDL Ratio 2.4 (1-3.5); Cholesterol 91 mg/dl (140-200); Estimated Glomerular Filt Rate 110 ml/min (>60); GFR (African American) 133 ML/MIN (>60); Globulin 2.4 g/dL (1.3-3.2); Glucose 112 mg/dl (74-100); HDL Cholesterol 38 mg/dl (40-60); Potassium 4.3 mmoL/L (3.5-5.1); Sodium 140 mmol/L (136-145); Total Protein,Serum 6.5 g/dl (6.3-8.2); Triglycerides 54 mg/dl (30-150); VLDL Cholesterol 11 mg/dL (0-40)
[2024-02-08 10:01] LABS: Direct LDL Cholesterol 42.42 mg/dL (100-129)
[2024-02-08 10:20] LABS: Prostate Specific Ag Screen 4.6 ng/ml (0.0-4.0)
[2024-02-08 10:42] LABS: Hemoglobin A1C 5.7 % (4.0-6.0)
== END 2024-02-08 23:59 | disposition home or self-care (01) ==
PROVIDERS: PCP Internal Medicine; Visit Provider Internal Medicine
DX: E78.2 Mixed hyperlipidemia (principal); R73.02 Impaired glucose tolerance (oral); E03.9 Hypothyroidism, unspecified; I10 Essential (primary) hypertension; I25.10 Atherosclerotic heart disease of native coronary artery without angina pectoris; Z12.5 Encounter for screening for malignant neoplasm of prostate
CPT/HCPCS: 36415; 80053; 80061; 83036; 84443; 85025; G0103

== ENCOUNTER 2024-02-15 12:34 | Outpatient (CLI) | payer MEDICARE, OTHER, SELFPAY ==
--- NOTE | 2024-02-15 12:34 | US_ITS ---
FINAL REPORT CLINICAL HISTORY: F/U NODULES COMPARISON: 02/09/2023 FINDINGS: Sonographic images of the thyroid gland were obtained. The right thyroid lobe measures 4 5 mm. in length. The left lobe of the thyroid gland has been resected. The thyroid isthmus measures 3 mm. The echogenicity is normal. There is a 7 x 6 x 4 mm nodule in the right lobe of the thyroid gland, which measured 5 x 4 x 4 mm on the prior exam. This nodule is solid, hypoechoic, with macrocalcifications, which are more numerous than seen on the prior exam. This is a TI-RADS category 4 nodule. There is also a 10 x 8 x 5 mm spongiform nodule in the right lobe, a TI-RADS category 1 nodule. Several other smaller nodules are identified. IMPRESSION: Prior left thyroidectomy 7 x 6 x 4 mm solid hypoechoic nodule in the right lobe of the thyroid gland, with macrocalcifications which are more numerous since the prior exam. This is a TI-RADS category 4 nodule, and would suggest a 6-month follow-up ultrasound for further evaluation. Authenticated and [facility]
== END 2024-02-15 23:59 | disposition home or self-care (01) ==
LOC: RAD 12:34
PROVIDERS: PCP Internal Medicine; Visit Provider Internal Medicine
DX: Z85.850 Personal history of malignant neoplasm of thyroid (principal)
CPT/HCPCS: 76536

== ENCOUNTER 2024-08-08 15:13 | Outpatient (CLI) | payer MEDICARE, OTHER, SELFPAY ==
[2024-08-08 12:19] LABS: Basophils % 0.5 % (0.1-2.0); Eosinophils # 0.1 Kmm3 (0.0-0.4); Eosinophils % 1.8 % (0.1-12.0); Hematocrit 45.6 % (42.0-52.0); Hemoglobin 15.5 g/dL (14.1-18.0); Lymphocytes # 2.2 K/mm3 (0.7-4.5); Lymphocytes % 33.7 % (10-50); Mean Corpuscular Hemoglobin 32.3 pg (27.0-31.2); Mean Platelet Volume 10.5 fl (7.4-10.4); Monocytes # 0.5 K/mm3 (0.1-1.0); Monocytes % 7.7 % (1.7-9.3); Neutrophils # 3.7 K/mm3 (1.8-7.8); Nucleated Red Blood Cells # 0 10^3/uL; Nucleated Red Blood Cells % 0 %; Platelet Count 252 K/mm3 (142-424); Red Cell Distribution Width 12.3 % (11.5-17.5); Red Cell Distribution Width-SD 43.1 fL; White Blood Count 6.5 K/mm3 (4.8-10.8)
[2024-08-08 12:44] LABS: Alanine Aminotransferase 38 U/L (12-78); Albumin Level 4.1 g/dl (3.5-5.0); Albumin/Globulin Ratio 1.5 (1.1-1.8); Alkaline Phosphatase 68 U/L (38-126); Anion Gap 10.4 mEq/L (5-15); Aspartate Amino Transferase 41 U/L (17-59); Blood Urea Nitrogen 14 mg/dl (9-20); Calcium 9.5 mg/dl (8.4-10.2); Carbon Dioxide 27 mmol/L (22.0-30.0); Chloride 108 mmol/L (98-107); Chol/HDL Ratio 2.6 (1-3.5); Cholesterol 118 mg/dl (140-200); Estimated Glomerular Filt Rate 94 ml/min (>60); GFR (African American) 113 ML/MIN (>60); Globulin 2.7 g/dL (1.3-3.2); Glucose 108 mg/dl (74-100); HDL Cholesterol 45 mg/dl (40-60); Potassium 4.4 mmoL/L (3.5-5.1); Sodium 141 mmol/L (136-145); Total Protein,Serum 6.8 g/dl (6.3-8.2); Triglycerides 72 mg/dl (30-150); VLDL Cholesterol 14 mg/dL (0-40)
[2024-08-08 12:56] LABS: Direct LDL Cholesterol 45.02 mg/dL (100-129)
[2024-08-08 13:13] LABS: Prostate Specific Ag, Diagnost 4.45 ng/ml (0.0-4.0); Thyroid Stimulating Hormone 0.51 uIU/mL (0.465-4.68)
--- OUTSIDE RECORDS SUMMARY | 2024-08-08 15:15 | XMS_ITS | Continuity of Care Document ---
Author Name [facility] Organization [facility] Care Team Providers Care Corporate Administrator Name Role Phone [facility] Unavailable Unavailable Problems Combined list of problems from Department of Defense and Veterans Affairs facilities. It does not include entries that were removed or entered in error. Problem Status Onset Date Problem Type Date of Resolution Comments Source Hearing loss * (ICD-9-CM 389.9) Active Condition [place] [facility] Hyperlipidemia Active Condition [place] [facility] Hypertrophy (Benign) of Prostate without Urinary obstruction (ICD-9-CM 600.00) Active Condition [place] Immunizations Combined list of available immunizations from the Department of Defense and Veterans Affairs facilities. Immunization Series Date Given Administered By Site Reaction Lot Number CVX Code Drug Line Technician Status Comments Source TD(ADULT) UNSPECIFIED FORMULATION 2005 139 complet ed [place] [facility] Social History Combined list of available smoking, tobacco, and other social history from Department of Defense and Veterans Affairs facilities. Social History Type Response Date Comment Sourc e Tobacco smoking status ILIS V9 QUIT TOBACCO >7 YEARS AGO 08/14/2008 [facility]
== END 2024-08-08 23:59 | disposition home or self-care (01) ==
LOC: LAB.DROPOF 15:14
PROVIDERS: PCP Internal Medicine; Visit Provider Internal Medicine
DX: E78.2 Mixed hyperlipidemia (principal); I10 Essential (primary) hypertension; R73.02 Impaired glucose tolerance (oral); R97.20 Elevated prostate specific antigen [PSA]; Z85.850 Personal history of malignant neoplasm of thyroid
CPT/HCPCS: 80053; 80061; 83036; 84153; 84443; 85025

== ENCOUNTER 2024-08-10 08:31 | Outpatient (CLI) | payer MEDICARE, OTHER, SELFPAY ==
--- OUTSIDE RECORDS SUMMARY | 2024-08-10 08:33 | XMS_ITS | Continuity of Care Document ---
Author Name [facility] Organization [facility] Care Team Providers Care Interior Specialist Name Role Phone [facility] Unavailable Unavailable Problems Combined list of problems from Department of Defense and Veterans Affairs facilities. It does not include entries that were removed or entered in error. Problem Status Onset Date Problem Type Date of Resolution Comments Source Hearing loss * (ICD-9-CM 389.9) Active Condition [place] [facility] Hyperlipidemia Active Condition [place] Hypertrophy (Benign) of Prostate without Urinary obstruction (ICD-9-CM 600.00) Active Condition [place] Immunizations Combined list of available immunizations from the Department of Defense and Veterans Affairs facilities. Immunization Series Date Given Administered By Site Reaction Lot Number CVX Code Drug Director Of Campus Recreation Status Comments Source TD(ADULT) UNSPECIFIED FORMULATION 2005 139 complet ed [place] [facility] Social History Combined list of available smoking, tobacco, and other social history from Department of Defense and Veterans Affairs facilities. Social History Type Response Date Comment Sourc e Tobacco smoking status GAIS V9 QUIT TOBACCO >7 YEARS AGO 08/14/2008 [facility]
--- NOTE | 2024-08-10 09:00 | US_ITS ---
FINAL REPORT TECHNIQUE: Sonographic images of the thyroid were obtained. CLINICAL HISTORY: Follow-up on right thyroid nodule COMPARISON: 02/15/2024 FINDINGS: THYROID ULTRASOUND The right thyroid gland measures 4.0 x 2.2 x 2.1 cm. There has been a prior left thyroidectomy. There is a stable hypoechoic and solid 7 x 6 mm nodule with internal calcifications, TI-RADS 4. There is a stable bilobed nodule in the mid right lobe measuring 0.9 x 0.5 cm. There is a relatively isoechoic nodule measuring 6 mm, which appears stable. There is a hypoechoic nodule measuring 6 mm, which appears stable. IMPRESSION: Stable right TI-RADS 4 nodules in the right lobe of the thyroid. No further follow-up required per TI-RADS criteria. Reviewed, Interpreted and Dictated by Jason Villa MD Transcribed by Barbara Cruz Authenticated and [facility]
== END 2024-08-10 23:59 | disposition home or self-care (01) ==
LOC: RAD 08:31
PROVIDERS: PCP Internal Medicine; Visit Provider Internal Medicine
DX: E04.1 Nontoxic single thyroid nodule (principal); Z85.850 Personal history of malignant neoplasm of thyroid
CPT/HCPCS: 76536

== ENCOUNTER 2024-12-21 08:01 | Outpatient (CLI) | payer MEDICARE, OTHER, SELFPAY ==
--- OUTSIDE RECORDS SUMMARY | 2024-12-21 08:03 | XMS_ITS | Referral Summary ---
Author Organization [facility] Address [address] [place] [address] Phone Care Team Providers Care Weapons Officer [employer] Name Role Phone Blair Easton MD, [place] Primary Care Provider Allergies No known active allergies Medications atorvastatin (LIPITOR) 40 MG TABS Take 40 mg by mouth daily. 02/03/2024 Active levothyroxine (SYNTHROID, LEVOTHROID) 100 MCG TABS Take 100 mcg by mouth daily. 02/07/2024 Active metoprolol succinate (TOPROL-XL) 25 mg extended-release tablet Take 25 mg by mouth daily. 11/03/2023 Active sildenafil (REVATIO) 20 mg TABS SMARTSI- 5 Tablet(s) By Mouth Daily PRN 12/07/2023 Active valsartan (DIOVAN) 160 MG TABS Take 160 mg by mouth daily. 02/14/2024 Active Active Problems Problem Noted Date Diagnosed Date Thyroid nodule 02/29/2024 History of thyroid cancer 02/29/2024 Social History Tobacco Use Types Packs/Day Years Used Date Smoking Tobacco: Former Cigarettes Smokeless Tobacco: Never Tobacco Cessation:Counseling Given: Not Answered Alcohol Use Standard Drinks/Week Comments Yes 0 (1 standard drink = 0.6 oz pur e alcohol) occ Sex and Gender Information Value Date Recorded Sex Assigned at Not on file Legal Sex Male 9:48 AM EST Gender Identity Not on file Sexual Orientation Not on file Plan of Treatment Not on file Insurance MEDICARE on file [facility] Care Teams Weapons Officer [employer] Relationship Specialty Start Date End Date Abilio Pinto Jr., MD PCP - General Internal Medicine 02/29/24
--- OUTSIDE RECORDS SUMMARY | 2024-12-21 08:03 | XMS_ITS | Encounter Summary ---
Author Organization [facility] Address [address] [place] [address] [place] [address] Phone Care Team Providers Care Party Chief Name Role Phone Blair Easton MD, [place] Primary Care Provider [phone] Reason for Visit * Reason Comments Patient Concern (Non-Clinical) Encounter Details Date Type Department Care Team (Late st Contact Info) Description 09/05/2024 Telephone [facility] Central Scheduling [address] [place] [address] Marco Escamilla MD [address] [place] [address] Social History Tobacco Use Types Packs/Day Years Used Date Smoking Tobacco: Former Cigarettes Smokeless Tobacco: Never Alcohol Use Standard Drinks/Week Comments Yes 0 (1 standard drink = 0.6 oz pur e alcohol) occ Sex and Gender Information Value Date Recorded Sex Assigned at Not on file Legal Sex Male 9:48 AM EST Gender Identity Not on file Sexual Orientation Not on file documented as of this encounter Miscellaneous Notes * Telephone Encounter - Padmini Best LPN - 09/08/2024 11:42 AM EDT Returned patient call patient can drop off at the [place] or [place] office. I also stated on the message that outside CD sometimes are challenging to open. * Telephone Encounter - Corby Rosales - 09/05/2024 9:01 AM EDT PATIENT SPOUSE CALLED IN AT 9:01 AM WANTED TO KNOW HOW TO GET SCAN TO YOU DR ESCAMILLA. PLEASE CALL SPOOUSE BACK [phone] documented in this encounter Plan of Treatment Not on file documented as of this encounter Visit Diagnoses Not on filedocumented in this encounter Care Teams Party Chief Relationship Specialty Start Date End Date Abilio Pinto Jr., MD PCP - General Internal Medicine 02/29/24 documented as of this encounter
--- OUTSIDE RECORDS SUMMARY | 2024-12-21 08:03 | XMS_ITS | Clinical Summary ---
Author Organization [facility] Address [address] [place] [address] Phone Care Team Providers Care In Flight Refueling System Repairer Name Role Phone Blair Easton MD, [place] Primary Care Provider Allergies No known active [...] Orientation Not on file Plan of Treatment Health Maintenance Due Date Last Done Comments Hepatitis C Screening 1945 DTap,Tdap,and Td (1 - Tdap) 06/10/1956 Pneumococcal 50+ (1 of 1 - PCV) 06/10/1997 Shingrix (#1) 06/10/1997 RSV Vaccine (60+ or ) (1 - 1-dose 75+ series) 06/10/2022 Influenza Vaccine (#1) 2024 HPV Aged Out No longer eligi ble based on patient's age to complete this topic Meningococcal conjugate melita nt 4 (MCV4) Aged Out No longer eligible b ased on patient's age to complete this topic RSV Immunization (<20 months) Aged Out No longer eligible based on patient's age to complete this topic Insurance MEDICARE on file [facility] Care Teams In Flight Refueling System Repairer Relationship Specialty Start Date End Date Abilio Pinto Jr., MD PCP - General Internal Medicine 02/29/24
--- NOTE | 2024-12-21 08:30 | US_ITS ---
FINAL REPORT CLINICAL HISTORY: History of thyroid cancer and LT thyroidectomy, hoars COMPARISON: Reports from exams 2022, 2023 and 2024 FINDINGS: THYROID ULTRASOUND FINDINGS: SIZE: Right lobe is normal in size. Patient is status post left thyroidectomy. ECHOGENICITY: Mildly heterogeneous LESIONS: Multiple subcentimeter right thyroid nodules are again noted. A mixed cystic and solid nodule with calcifications is again noted within the central right lobe measuring up to 6 x 9 mm classified as TR 4. There is a 6 mm isoechoic nodule classified as TR 3 in the lateral mid lobe. There is a 6 mm hypoechoic TR 4 nodule in the inferior lobe. No particularly suspicious or obvious enlarging lesion is seen. OTHER: No additional findings IMPRESSION: Multiple right thyroid nodules having a benign appearance without obvious enlargement TI-RADS 4 RECOMMENDATION: No specific recommendations for follow-up given size and morphology of nodules with likelihood of benign etiology Authenticated and [facility]
== END 2024-12-21 23:59 | disposition home or self-care (01) ==
LOC: RAD 08:01
PROVIDERS: PCP Internal Medicine; Visit Provider Internal Medicine
DX: R49.0 Dysphonia (principal); E04.2 Nontoxic multinodular goiter; Z85.850 Personal history of malignant neoplasm of thyroid
CPT/HCPCS: 76536

== ENCOUNTER 2025-01-25 07:53 | Outpatient (CLI) | payer OTHER, SELFPAY ==
--- OUTSIDE RECORDS SUMMARY | 2025-01-25 08:00 | XMS_ITS | Encounter Summary ---
Author Organization [facility] Address [address] [place] [address] [place] [address] Phone Care Team Providers Care Equity Analyst Name Role Phone Blair Easton MD, [place] Primary Care Provider [phone] Reason for Visit * Reason Comments Patient Concern (Non-Clinical) Encounter Details Date Type Department Care Team (Late st Contact Info) Description 09/05/2024 Telephone [facility] Central Scheduling [address] [place] [address] Marco Escamilla MD [address] [place] [address] Social History Tobacco Use Types [...] call patient can drop off at the [place] or [place] office. I also stated on the message that outside CD sometimes are challenging to open. * Telephone Encounter - Corby Rosales - 09/05/2024 9:01 AM EDT PATIENT SPOUSE CALLED IN AT 9:01 AM WANTED TO KNOW HOW TO GET SCAN TO YOU DR ESCAMILLA. PLEASE CALL SPOOUSE BACK [phone] documented in this encounter Plan of Treatment Not on file documented as of this encounter Visit Diagnoses Not on filedocumented in this encounter Care Teams Equity Analyst Relationship Specialty Start Date End Date Abilio Pinto Jr., MD PCP - General Internal Medicine 02/29/24 documented as of this encounter
--- OUTSIDE RECORDS SUMMARY | 2025-01-25 08:00 | XMS_ITS | Clinical Summary ---
Author Organization [facility] Address [address] [place] [address] Phone Care Team Providers Care Project Development Director Name Role Phone Blair Easton MD, [place] Primary Care Provider Allergies No known active [...] complete this topic Insurance MEDICARE on file [facility] Care Teams Project Development Director Relationship Specialty Start Date End Date Abilio Pinto Jr., MD PCP - General Internal Medicine 02/29/24
[2025-01-25 09:15] LABS: Free T4 (Free Thyroxine) 1.24 ng/dl (0.78-2.19)
[2025-01-25 09:31] LABS: Thyroid Stimulating Hormone 1.14 uIU/mL (0.465-4.68)
[2025-01-26 08:22] LABS: Triiodothyronine (T3) Free 3.0 pg/mL (2.0-4.4)
== END 2025-01-25 23:59 | disposition home or self-care (01) ==
LOC: LAB 07:58
PROVIDERS: PCP Internal Medicine; Visit Provider Chiropractor
DX: E03.9 Hypothyroidism, unspecified (principal)
CPT/HCPCS: 36415; 84439; 84443; 84481